=== PATIENT | male | born 1990 | race Caucasian/White ===

== ENCOUNTER 2016-11-26 20:54 | Emergency (ER) | payer BC ==
[2016-11-26 21:02] VITALS: BP 161/94; PULSE 79; TEMP 97.9; BMI 26.6
--- NOTE | 2016-11-26 21:55 | PDOC ---
History of Present Illness - General Chief Complaint: Pain, Acute Stated Complaint: GOUT Time Seen by Provider: 11/26/16 21:20 History Source: Patient Exam Limitations: No Limitations - History of Present Illness Initial Comments: 11/26/16 21:49 26 yr male with right knee pain for 6 days . Pt states he has a history of gout in the knee, feels the same . Pt has been taking indocin once a day the past few days he ran out now. pt admits to drinking alcohol which makes his pain worse. no fever, no trauma. 11/26/16 22:37 Occurred: reports: last week Severity: Yes: moderate Lower Extremity Pain Location: right: knee Past History - Past Medical History Allergies/Adverse Reactions: Allergies Allergy/AdvReac Type Severity Reaction Status Date / Time No Known Allergies Allergy Verified 11/26/16 20:59 Home Medications: Ambulatory Orders No Home Medications 0 dose .ROUTE UTDICT 05/21/13 Pantoprazole Sodium [Protonix] 40 mg PO DAILY #30 tablet. 05/21/13 Indomethacin [Indocin -] 50 mg PO TID PRN #21 capsule 11/26/16 GI Disorders: Yes (gerd) Other medical history: gout - Immunization History Immunization Up to Date: Yes - Psycho/Social/Smoking Cessation Hx Anxiety: No Suicidal Ideation: No Smoking History: Current some day smoker Have you smoked in the past 12 months: Yes Number of Cigarettes Smoked Daily: 2 Information on smoking cessation initiated: No 'Breaking Loose' booklet given: 05/21/13 Hx Alcohol Use: Yes Drug/Substance Use Hx: Yes Substance Use Type: Cocaine Review of Systems - Review of Systems Able to Perform ROS?: Yes Is the patient limited Yi proficient: No Constitutional: No: Symptoms Reported HEENTM: No: Symptoms Reported Respiratory: No: Symptoms reported Cardiac (ROS): No: Symptoms Reported ABD/GI: No: Symptoms Reported : No: Symptoms Reported Musculoskeletal: Yes: See HPI *Physical Exam - Vital Signs Last Vital Signs Temp Pulse Resp BP Pulse Ox 97.9 F 79 18 161/94 98 11/26/16 20:59 11/26/16 20:59 11/26/16 20:59 11/26/16 20:59 11/26/16 20:59 - Physical Exam General Appearance: Yes: Nourished, Appropriately Dressed HEENT: positive: EOMI, ALBERTO Neck: positive: Supple. negative: Tender Respiratory/Chest: positive: Lungs Clear, Normal Breath Sounds Cardiovascular: positive: Regular Rhythm, Regular Rate Extremity: positive: Normal Capillary Refill, Normal Inspection, Tender, Other ( limited right knee extension due to pain, no swelling, redness or deformity ). negative: Swelling, Erythema, Inflammation ED Treatment Course - RADIOLOGY Radiology Studies Ordered: Category Date Time Status KNEE 2 POS-RIGHT [RAD] Stat Radiology 11/26/16 21:41 Ordered Medical Decision Making - Medical Decision Making 11/26/16 21:56 cc: right knee pain "gout" pt states similair to previous gour flare ups in the knee pt has drank alcohol the past week and last night stating "I know that makes gout worse" will get xray to r/o effusion , septic joint will give toradol for pain , colchicine is not indicated as pt has symptoms for more than 72-96hrs and is therefore not recommended. 11/26/16 22:34 uric acid is elevated will dc home with strict elevation 11/26/16 22:44 11/27/16 12:39 spoke with pt today regarding xray reading of knee effussion. I have given the pt the name of to follow up with. Pt is to elevate knee and apply warm compresses as directed . Pt understands the plan of care all questions asked and answered. *DC/Admit/Observation/Transfer Diagnosis at time of Disposition: Gout Qualifiers: Gout site: knee Gout etiology: unspecified cause Laterality: right Chronicity: acute Qualified Code(s): M10.9 - Gout, unspecified - Discharge Dispostion Disposition: HOME Condition at time of disposition: Good - Prescriptions Prescriptions: Indomethacin [Indocin -] 50 mg PO TID PRN #21 capsule PRN Reason: Pain - Referrals Referrals: Will Robles MD [Staff Physician] - - Patient Instructions Additional Instructions: elevate the knee and apply warm compresses every 3-4hrs for 20 minutes take the Indocin 50mg every 8hrs for pain follow with your doctor Monday or Monday avoid alcohol, red meat chocolate , seafood as this can make symptoms worse
[2016-11-26] MEDS ORDERED: KETOROLAC TROMETHAMINE 60 MG/2 ML VIAL IM ONE (22:29)
[2016-11-26] MEDS ORDERED: KETOROLAC TROMETHAMINE 60 MG/2 ML VIAL ONE (22:35)
== END 2016-11-26 22:46 | disposition home or self-care (01) ==
LOC: JERFT 20:54
PROC: 3E0233Z Introduction of Anti-inflammatory into Muscle, Percutaneous Approach (ICD-10-PCS; principal; 2016-11-26)
DX: M10.9 Gout, unspecified (principal); F17.210 Nicotine dependence, cigarettes, uncomplicated
CPT/HCPCS: 36415; 73560-TC-RT; 84550; 99281-25